=== PATIENT | male | born 1960 | race Caucasian/White ===

== ENCOUNTER 2016-06-19 18:04 | Emergency (ER) ==
--- NOTE | 2016-06-19 18:41 | PROVIDER DOCUMENTATION ---
HPI-Neurological Disorder <Chaya Nicolas - Last Filed: 06/19/16 19:12> - General Source: patient - History of Present Illness-Neuro Onset/Duration: reports: 4 days ago Timing: reports: still present Character of Altered Mental Status: reports: N/A Any recent trauma/injury?: reports: none Character of Deficits: reports: new weakness New weakness or altered sensation location:: reports: RUE, RLE Cognitive Baseline: alert, oriented x3 Gait Baseline: walks without assistance Associated Symptoms: reports: neck/back pain (chronic), numbness in legs/feet, slurred speech, weakness. denies: headache, dizziness, confusion, fever/chills Similar Symptoms Previously?: No <Kendal Lomas - Last Filed: 06/19/16 21:24> - General Chief Complaint: Numbness Stated Complaint: BACK PAIN Time Seen by Provider: 06/19/16 18:33 Allergies/Adverse Reactions: Patient Allergies Allergy/AdvReac Type Severity Reaction Status Date / Time No Known Allergies Allergy Verified 06/19/16 18:51 Home Medications: Home Medication List Medication Instructions Recorded Confirmed Last Taken Type Cyclobenzaprine [Flexeril] 10 mg PO Q6H PRN PRN #20 tablet 06/19/16 Unknown Rx Meloxicam [Mobic] 15 mg PO DAILY #14 tablet 06/19/16 Unknown Rx Methylprednisolone [Medrol Dosepak] 4 mg PO DIRECTED #1 package 06/19/16 Unknown Rx - History of Present Illness-Neuro Nature of Presenting Problem: 55 y/o M smoker with chronic low back pain and neck pain presents with right arm right leg numbness and weakness along with slurred speech and drooling out of the right corner of his mouth x 4 days. He states he has had trouble walking intermittently over the past 4 days and has been "dragging" his right leg He also complains of right sided low back pain that is typical of his chronic low back pain and new right sided neck pain that started 4 days ago when "pulling some wire". Initially he thought it was a pinched nerve but it hasn't gotten better after using a heating pad. Patient has not seen a PCP in 30 years. Patient is requesting to go smoke. (Kendal Lomas) Review of Systems - Adult - REVIEW OF SYSTEMS - ADULT Constitutional: reports: no symptoms reported. denies: chills, fever Eyes: reports: no symptoms reported Ears, Nose, Mouth & Throat: reports: no symptoms reported Cardiovascular: reports: no symptoms reported. denies: chest pain Respiratory: reports: no symptoms reported. denies: cough, shortness of breath , wheezing Gastrointestinal: reports: no symptoms reported. denies: abdominal pain, nausea , vomiting Genitourinary: reports: no symptoms reported Musculoskeletal: reports: see HPI Integumentary: reports: no symptoms reported. denies: itching, rash Neurological: reports: see HPI Psychiatric: reports: no symptoms reported Endocrine: reports: no symptoms reported Hematologic/Lymphatic: reports: no symptoms reported. denies: blood clots, easy bruising Allergic/Immunologic: reports: no symptoms reported All Other Systems: Reviewed and Negative <Kendal Lomas - Last Filed: 06/19/16 21:24> Past History - Adult - PAST MEDICAL HISTORY-ADULT Review of Records: reports: Nursing Assessment Review, Medications Reviewed <Kendal Lomas - Last Filed: 06/19/16 21:24> Physical Exam- Neurological - Physical Exam-Neuro Initial Vital Signs Reviewed: Yes General Appearance: appears well, alert, no apparent distress Eye Exam: bilateral eye: normal inspection, PERRL, EOMI HENMT: normocephalic/atraumatic, moist mucous membranes Head Injury: no evidence of injury Neck: non-tender, full range of motion, supple Respiratory: chest non-tender, lungs clear, no pleuratic chest pain, no respiratory distress, rhonchi (mild, scattered) Cardiovascular: normal peripheral pulses, regular rate, rhythm, no edema, no gallop, no JVD, no murmur Abdominal Exam: normal bowel sounds, non tender, soft Lymphatic: no adenopathy Peripheral Pulses: radial (R): 2+, radial (L): 2+ mechanical apprentice Exam: normal hearing, normal speech, PERRL. 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 negative: facial droop Integumentary: normal color, normal turgor, warm/dry Psych/Mental Status: normal mood/affect, normal thought content, normal thought process, oriented x 3 - Glascow Coma Scale Best Eye Response: (4) open spontaneously Best Verbal Response: (5) oriented Best Motor Response: (6) obeys commands Total Glascow Score: 15 <Kendal Lomas - Last Filed: 06/19/16 21:24> Progress - EKG 1 Time of EKG reading by physician:: 18:52 EKG Read and Signed by:: Christine Muhammad EKG Interpretation (*Must complete 3 of following elements*): Normal Rate: 75 Rhythm: NSR Comments: Normal ECG <Chaya Nicolas - Last Filed: 06/19/16 19:12> - REASSESSMENT Reassessment #1 Time Reassessed: 21:18 (Patient resting comfortably in no distress. Neuro exam stable. A&Ox4 with normal gait. Discussed patient, including CT findings, with Dr. Nguyen. Will discharge patient home with follow up with spine and neuro clinic. He is instructed to return to ER for any new or worsening symptoms such as loss of function or paralysis.) - XRAY 1 XRAY Study: Chest XRAY Interpretation: NAP - CT/MRI 1 CT Study: Head CT Results: NAP 2 CT Study: Cervical Spine CT Results: DJD with chronic central canal and foraminal stenosis 3 CT Study: Lumbar Spine CT Results: mild DJD. NAP <Kendal Lomas - Last Filed: 06/19/16 21:24> - PLAN OF CARE/RESULTS Progress/Plan/Lab Results: Laboratory Tests 06/19/16 06/19/16 06/19/16 18:48 19:00 19:00 WBC 7.17 RBC 4.85 Hgb 14.7 Hct 42.8 MCV 88.2 MCH 30.3 MCHC 34.3 RDW Std Deviation 13.3 Plt Count 321 MPV 9.4 Immature Gran % (Auto) 0.0 Neut % (Auto) 47.9 Lymph % (Auto) 40.2 [place] % (Auto) 9.1 Eos % (Auto) 1.8 Baso % (Auto) 1.0 H Immature Gran # (Auto) 0.00 Neut # (Auto) 3.44 Lymph # (Auto) 2.88 [place] # (Auto) 0.65 H Eos # (Auto) 0.13 Baso # (Auto) 0.07 Sodium 142 Potassium 4.1 Chloride 104 Carbon Dioxide 25 Anion Gap 13 BUN 22 Creatinine 0.8 Estimated GFR/1.73 m2 > 60 BUN/Creatinine Ratio 28 Glucose 92 POC Glucose 79 Calculated Osmolality 286 Calcium 9.6 Total Bilirubin 0.33 AST 15 ALT 10 Alkaline Phosphatase 101 Total Protein 7.3 Albumin 4.5 Globulin 2.8 Albumin/Globulin Ratio 1.6 Orders Category Date Time Status CHEST-2 VIEWS [RAD] Stat Exams 06/19/16 18:52 Taken HEAD/C-SPINE W/O CONTRAST [CT] Stat Exams 06/19/16 18:41 Taken LUMBAR SPINE W/O CONTRAST [CT] Stat Exams 06/19/16 18:44 Taken CBC WITH ELECTRONIC DIFF [HEME] Stat Lab 06/19/16 19:00 Completed COMPREHENSIVE METABOLIC PANEL [CHEM] Stat Lab 06/19/16 19:00 Completed URINALYSIS W/POSS RFLX CULT [URINALYSIS] Stat Lab 06/19/16 18:42 Uncollected EKG [EKG] Stat Ther 06/19/16 18:44 Ordered Vital Signs Temp Pulse Resp BP Pulse Ox 06/19/16 18:12 98.1 F 100 H 18 124/88 100 No Known Allergies Allergy (Verified 06/19/16 18:51) No Home Medications 06/19/16 Laboratory 06/19/16 06/19/16 06/19/16 19:00 19:00 18:48 WBC 7.17 RBC 4.85 Hgb 14.7 Hct 42.8 MCV 88.2 MCH 30.3 MCHC 34.3 RDW Std Deviation 13.3 Plt Count 321 MPV 9.4 Immature Gran % (Auto) 0.0 Neut % (Auto) 47.9 Lymph % (Auto) 40.2 [place] % (Auto) 9.1 Eos % (Auto) 1.8 Baso % (Auto) 1.0 H Immature Gran # (Auto) 0.00 Neut # (Auto) 3.44 Lymph # (Auto) 2.88 [place] # (Auto) 0.65 H Eos # (Auto) 0.13 Baso # (Auto) 0.07 Sodium 142 Potassium 4.1 Chloride 104 Carbon Dioxide 25 Anion Gap 13 BUN 22 Creatinine 0.8 Estimated GFR/1.73 m2 > 60 BUN/Creatinine Ratio 28 Glucose 92 POC Glucose 79 Calculated Osmolality 286 Calcium 9.6 Total Bilirubin 0.33 AST 15 ALT 10 Alkaline Phosphatase 101 Total Protein 7.3 Albumin 4.5 Globulin 2.8 Albumin/Globulin Ratio 1.6 (Kendal Lomas) Departure <[facility] Academy[facility]aya - Last Filed: 06/19/16 19:12> - Departure Time of Disposition Order: 21:21 Certified Medical Emergency: Emergent <Kendal Lomas - Last Filed: 06/19/16 21:24> - Departure DIAGNOSIS: Cervical muscle strain, Cervical spinal stenosis, DJD (degenerative joint disease), lumbar Disposition: HOME 01 Condition: Good Additional Instructions: ED Follow Up Instructions: You have been treated by a care provider in the Emergency Department. These instructions are being provided to you so you can have an understanding of how to care for yourself upon discharge. Upon discharge from the Emergency Department, you are responsible for making arrangements for follow-up care by a physician of your choice. Take all prescribed medications as directed. Return to the Emergency Department immediately for any new or worsening symptoms. You may call the Physician Referral phone number at [phone] to obtain a list of Physicians who are taking new patients. Prescriptions: Cyclobenzaprine [Flexeril] 10 mg PO Q6H PRN PRN #20 tablet PRN Reason: Pain Methylprednisolone [Medrol Dosepak] 4 mg PO DIRECTED #1 package Meloxicam [Mobic] 15 mg PO DAILY #14 tablet Attestation - Physician/ LORE Attestation Patient care was provided by Advanced Practice Provider:: Yes Advanced Practice Provider:: Kendal Lomas Advanced Practice Provider documentation review:: The Mid-level provider documentation, treatment plan and medical decision making was reviewed by the physician who agrees with all treatment and medical decision making by the [facility] [place]. <Kendal Lomas - Last Filed: 06/19/16 21:24> Physician Attestation
[2016-06-19 19:09] LABS: MANUAL DIFF NEEDED? NO
[2016-06-19 19:15] LABS: EOS# 0.13 X1000 (0.0-0.7); EOS% 1.8 % (0.0-10.0); HEMATOCRIT 42.8 % (42.0-52.0); HEMOGLOBIN 14.7 g/dL (14.0-18.0); LYMPH# 2.88 X1000 (1.2-3.4); LYMPH% 40.2 % (20.5-51.1); MCH 30.3 PG (27-31); MCHC 34.3 g/dL (33-37); MCV 88.2 FL (81-99); MONO# 0.65 X1000 (0.11-0.59); MONO% 9.1 % (1.7-9.3); MPV 9.4 FL (7.4-10.4); NEUT% 47.9 % (42.2-75.2); PLT 321 X1000 (130-400); RBC 4.85 XMIL (4.7-6.1)
[2016-06-19 19:38] LABS: AGAP 13; ALBUMIN 4.5 g/dL (3.5-5.0); ALKALINE PHOSPHATASE 101 U/L (32-122); BUN 22 mg/dL (8-22); CALCIUM 9.6 mg/dL (8.8-10.2); CHLORIDE 104 mmol/L (98-107); COSMO 286; GOT 15 U/L (10-34); GPT 10 U/L (10-44); POTASSIUM 4.1 mmol/L (3.5-5.1); SODIUM 142 mmol/L (136-145); TCO2 25 mmol/L (25-35); TOTAL BILIRUBIN 0.33 mg/dL (0.20-1.00); TOTAL PROTEIN 7.3 g/dL (6.3-8.3)
[2016-06-19 22:01] VITALS: BP 139/78
--- NOTE | 2016-06-20 05:36 | EKG Report ---
Test Performed on : 06/19/2016 6:52:10 PM Test Reason : weakness Blood Pressure : / mmHG Vent. Rate : 075 BPM Atrial Rate : 075 BPM P-R Int : 146 ms QRS Dur : 092 ms QT Int : 368 ms P-R-T Axes : 081 059 068 degrees QTc Int : 410 ms Normal sinus rhythm. Normal ECG No previous ECGs available Unconfirmed Result
--- NOTE | 2016-06-20 07:34 | Diag Imaging Result Document ---
PROCEDURE NAME: HEAD/C-SPINE W/O CONTRAST - 06/19/[address]: A CT dose reduction protocol was used. COMPARISON: None. FINDINGS: The ventricles and sulci are normal in size and contour. No intracranial mass or hemorrhage. The skull is intact. There are several small metallic densities in the soft tissues of the nose and left side of the scalp. IMPRESSION: No acute disease. CT CERVICAL SPINE: A CT dose reduction protocol was used. COMPARISON: None. FINDINGS: Alignment is anatomic. Vertebral body heights and intervertebral disk spaces are preserved. There is multilevel degenerative disk disease. No fracture or subluxation. At C4-5, there is a large disk bulge causing moderate central canal stenosis. There is also moderate bilateral neural foraminal stenosis. At C5-6, there is a large disk bulge causing moderate central canal stenosis. There is also severe bilateral neural foraminal stenosis primarily from uncovertebral spurring. At C7-T1, there is a moderately large disk bulge causing mild central canal stenosis. IMPRESSION: Cervical spondylosis. [facility]
--- NOTE | 2016-06-20 07:49 | Diag Imaging Result Document ---
PROCEDURE NAME: LUMBAR SPINE W/O CONTRAST - 06/19/2016 CT LUMBAR SPINE: A CT dose reduction protocol was used. COMPARISON: None. FINDINGS: Alignment is anatomic. There are moderate degenerative osteophytes at the lower thoracic spine and some degenerative changes in the lumbar spine. There are degenerative endplate changes at the superior endplate of L2. No evidence of fracture or subluxation. There is a nonobstructing left renal stone measuring 5 mm. Sacroiliac joints are clear. No significant disk bulge or herniation. No significant central canal or neural foraminal stenosis. IMPRESSION: 1. Moderate thoracolumbar spondylosis. 2. [facility] nephrolithiasis. [facility]
--- NOTE | 2016-06-20 08:52 | Diag Imaging Result Document ---
PROCEDURE NAME: CHEST-2 VIEWS - 06/19/2016 PA AND LATERAL RADIOGRAPH OF THE CHEST: COMPARISON: None available. FINDINGS: The lungs are grossly clear. There is no discrete pleural fluid collection or evidence of pneumothorax. The cardiomediastinal silhouette and upper airway are grossly unremarkable. IMPRESSION: No evidence of acute chest pathology.
== END 2016-06-19 22:01 | disposition home or self-care (01) ==
LOC: ED 18:04
DX: S16.1XXA Strain of muscle, fascia and tendon at neck level, initial encounter (principal); M48.02 Spinal stenosis, cervical region; M19.90 Unspecified osteoarthritis, unspecified site; M54.5 Low back pain; M62.81 Muscle weakness (generalized); R20.0 Anesthesia of skin; R47.81 Slurred speech; R26.2 Difficulty in walking, not elsewhere classified; M54.2 Cervicalgia; G89.29 Other chronic pain; F17.210 Nicotine dependence, cigarettes, uncomplicated
CPT/HCPCS: 70450; 71020; 72125; 72131; 80053; 82948; 85025; 93005